=== PATIENT | male | born 1970 | race Caucasian/White ===

== ENCOUNTER 2017-11-03 22:05 | Emergency (ER) | payer MEDICAID ==
[2017-11-03] MEDS: Sodium Chloride 0.9% 10 ML Syringe FLUSH PRN ×2 (22:05→22:37)
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
[2017-11-03] MEDS ORDERED: HYDROmorphone 2 MG/ML SDV IVPUSH ONE (22:24)
[2017-11-03] MEDS ORDERED: HYDROmorphone 2 MG/ML SDV ONE (22:26)
[2017-11-03] MEDS ORDERED: Iopamidol 755 MG/ML 150 ML Bottle IV ONE (22:45)
[2017-11-03] MEDS ORDERED: Insulin Regular, Human 100 Units/ML 3 ML Vial IV ONE (22:58)
[2017-11-03] MEDS ORDERED: Sodium Chloride 0.9% 1,000 ML IV SCH (23:00)
[2017-11-03] MEDS ORDERED: Diphtheria,Pertussis(Acell),Tetanus Vaccine 0.5 ML SDV IM ONE (23:08)
[2017-11-04] MEDS ORDERED: Sodium Chloride 0.9% 1,000 ML IV SCH (00:45)
[2017-11-04] MEDS ORDERED: Insulin Regular, Human 100 Units/ML 3 ML Vial SUBCUT ONE (22:59)
== END 2017-11-04 00:50 ==
LOC: FB.ED 22:05
DX: S52.002A Unspecified fracture of upper end of left ulna, initial encounter for closed fracture (principal); S82.301A Unspecified fracture of lower end of right tibia, initial encounter for closed fracture; S82.831A Other fracture of upper and lower end of right fibula, initial encounter for closed fracture; E11.65 Type 2 diabetes mellitus with hyperglycemia; Z23 Encounter for immunization; V23.4XXA Motorcycle driver injured in collision with car, pick-up truck or van in traffic accident, initial encounter
CPT/HCPCS: 29105; 29505; 29515; 36415; 51702; 70450; 71260; 72125; 73080-LT; 73610-RT; 74177; 80053; 80305-QW; 81001; 82947; 82962; 83036; 85025; 85610; 90471; 90715; 93005; 96361; 96374; 99285; G0480; J1170; J1815-GY; J7030; J7050; Q9967

== ENCOUNTER 2019-10-28 21:10 | Emergency (ER) | payer MEDICAID, OTHER ==
--- NOTE | 2019-10-28 22:22 | EDM.PDOC ---
ED HPI GENERAL MEDICAL PROBLEM - General Chief Complaint: General Stated Complaint: DIZZINESS Time Seen by Provider: 10/28/19 21:30 Source of Information: Reports: Patient History Limitations: Reports: No Limitations - History of Present Illness INITIAL COMMENTS - FREE TEXT/NARRATIVE: c/o dizzy pt last saw PCP Dr Luna 2y ago, last saw Dr Leo at [facility] 6m ago pt with h/o schizophrenia, lives alone, no children, no pets states his sister and mother have checked his BS the last few days and "it has been high", BS was 244 tonight after supper which got him worried, however his BS was over 300 with A1C of 7.8 from 2y ago when labs last checked in [facility] pt has never been on DM meds, states his diabetes is "diet controlled" unfortunately, he had a GFR of 46 from 2y ago pt agreed to recheck labs today EKG tonight with SR 85, borderline LAD -20, no Q waves, no hypertrophy - Related Data Allergies Allergy/AdvReac Type Severity Reaction Status Date / Time divalproex sodium Allergy Nausea and Verified 11/03/17 22:20 [From Depakote] Vomiting Home Meds: Home Meds Benztropine [Cogentin] 2 mg PO BEDTIME 11/03/17 [History] risperiDONE [Risperdal] 2 mg PO BID 11/03/17 [History] risperiDONE [Risperdal] 3 mg PO BID 11/03/17 [History] Meclizine HCl 25 mg PO TID PRN #21 tablet 10/28/19 [Rx] metFORMIN HCl [Glucophage] 500 mg PO QAM #30 tablet 10/28/19 [Rx] Past Medical History - Past Health History Medical/Surgical History: Denies Medical/Surgical History Psychiatric History: Reports: Depression, Schizophrenia, Other (See Below) Other Psychiatric History: memory problem Endocrine/Metabolic History: Reports: Diabetes, Type II Social & Family History - Tobacco Use Smoking Status *Q: Never Smoker - Recreational Drug Use Recreational Drug Use: No ED ROS GENERAL - Review of Systems Review Of Systems: See Below Constitutional: Reports: No Symptoms, Other (no pain) HEENT: Reports: No Symptoms Respiratory: Reports: No Symptoms Cardiovascular: Reports: No Symptoms Endocrine: Reports: No Symptoms GI/Abdominal: Reports: No Symptoms : Reports: No Symptoms Musculoskeletal: Reports: No Symptoms Skin: Reports: No Symptoms Neurological: Reports: Dizziness, Other (blurred vision in right eye for several days) Psychiatric: Reports: No Symptoms Hematologic/Lymphatic: Reports: No Symptoms Immunologic: Reports: No Symptoms ED EXAM, GENERAL - Physical Exam Exam: See Below General Appearance: Alert, WD/WN, No Apparent Distress Eye Exam: Bilateral Eye: EOMI, PERRL, Other (4/4 mm) Ears: Other (some hearing loss) Nose: Normal Inspection, Normal Mucosa, No Blood Throat/Mouth: Normal Inspection, Normal Lips, Normal Teeth, Normal Gums, Normal Oropharynx, Normal Voice, No Airway Compromise Head: Atraumatic, Normocephalic Neck: Normal Inspection, Supple, Non-Tender, Full Range of Motion. No: Lympha denopathy (R), Lymphadenopathy (L) Respiratory/Chest: No Respiratory Distress, Lungs Clear, Normal Breath Sounds, No Accessory Muscle Use Cardiovascular: Regular Rate, Rhythm, No Edema, No JVD, No Murmur GI/Abdominal: Soft, Non-Tender, No Distention Back Exam: Normal Inspection, Full Range of Motion. No: CVA Tenderness (R), CVA Tenderness (L) Extremities: Normal Inspection, Normal Range of Motion, Non-Tender, No Pedal Edema Neurological: Alert, Oriented, CN II-XII Intact, Normal Cognition, Normal Gait, No Motor/Sensory Deficits Skin Exam: Warm, Dry, Intact, Normal Color, No Rash Lymphatic: No Adenopathy Course - Vital Signs Last Recorded V/S: Last Vital Signs Temp 36.6 C 10/28/19 21:10 Pulse 87 10/28/19 21:10 Resp 23 H 10/28/19 21:10 BP 124/99 H 10/28/19 21:10 Pulse Ox 98 10/28/19 21:10 - Orders/Labs/Meds Orders: Active Orders 24 hr Category Date Time Status GLYCOSYLATED HEMOGLOBIN,HGBA1C [CHEM] Stat Lab 10/28/19 22:40 Ordered Meclizine [Antivert] Med 10/28/19 23:00 Once 25 mg PO ONETIME ONE Labs: Laboratory Tests 10/28/19 10/28/19 10/28/19 Range/Units 22:05 22:10 22:10 WBC 12.0 (4.5-12.0) X10-3/uL RBC 5.49 (4.30-5.75) x10(6)uL Hgb 16.1 (13.5-17.8) g/dL Hct 48.4 (30.0-51.3) % MCV 88.2 (80-96) fL MCH 29.2 (27.7-33.6) pg MCHC 33.2 (32.2-35.4) g/dL RDW 12.2 (11.5-15.5) % Plt Count 204 (125-369) X10(3)uL MPV 7.8 (7.4-10.4) fL Neut % (Auto) 67.7 (46-82) % Lymph % (Auto) 22.1 (13-37) % [place] % (Auto) 8.7 (4-12) % Eos % (Auto) 1 (1.0-5.0) % Baso % (Auto) 1 (0-2) % Neut # (Auto) 8.1 (1.6-8.3) # Lymph # (Auto) 2.7 (0.6-5.0) # [place] # (Auto) 1.0 (0.0-1.3) # Eos # (Auto) 0.1 (0.0-0.8) # Baso # (Auto) 0.1 (0.0-0.2) # Sodium 134 L (135-145) mmol/L Potassium 3.6 (3.5-5.3) mmol/L Chloride 97 L (100-110) mmol/L Carbon Dioxide 23 (21-32) mmol/L BUN 33 H D (7-18) mg/dL Creatinine 1.6 H (0.70-1.30) mg/dL Est Cr Clr Drug Dosing 57.82 mL/min Estimated GFR (MDRD) 46 L (>60) BUN/Creatinine Ratio 20.6 H (9-20) Glucose 219 H D (80-116) mg/dL Calcium 9.6 (8.6-10.2) mg/dL Total Bilirubin 0.6 (0.1-1.3) mg/dL AST 39 H D (5-25) IU/L ALT 56 H D (12-36) U/L Alkaline Phosphatase 89 (56-112) IU/L Troponin I (4.0-60.3) pg/mL Total Protein 8.4 H (6.0-8.0) g/dL Albumin 4.5 (3.5-5.2) g/dL Globulin 3.9 g/dL Albumin/Globulin Ratio 1.2 TSH, Ultra Sensitive (0.36-3.74) IU/mL Urine Color Yellow (YELLOW) Urine Appearance Slightly cloudy (CLEAR) Urine pH 5.0 (5.0-6.5) Ur Specific [place] 1.025 (1.010-1.025) Urine Protein Negative (NEGATIVE) mg/dL Urine Glucose (UA) >1000 H (NORMAL) mg/dL Urine Ketones 50 H (NEGATIVE) mg/dL Urine Occult Blood Moderate H (NEGATIVE) Urine Nitrite Negative (NEGATIVE) Urine Bilirubin Negative (NEGATIVE) Urine Urobilinogen Normal (NEGATIVE) mg/dL Ur Leukocyte Esterase Negative (NEGATIVE) Urine RBC 0-5 (0-5) Urine WBC 0-5 (0-5) Ur Squamous Epith Cells Occasional (NS,R,O) Uric Acid Crystals Moderate H (NS) Urine Bacteria Few H (NS) Urine Mucus Moderate H (NS) //20 Range/Units 22:10 WBC (4.5-12.0) X10-3/uL RBC (4.30-5.75) x10(6)uL Hgb (13.5-17.8) g/dL Hct (30.0-51.3) % MCV (80-96) fL MCH (27.7-33.6) pg MCHC (32.2-35.4) g/dL RDW (11.5-15.5) % Plt Count (125-369) X10(3)uL MPV (7.4-10.4) fL Neut % (Auto) (46-82) % Lymph % (Auto) (13-37) % [place] % (Auto) (4-12) % Eos % (Auto) (1.0-5.0) % Baso % (Auto) (0-2) % Neut # (Auto) (1.6-8.3) # Lymph # (Auto) (0.6-5.0) # [place] # (Auto) (0.0-1.3) # Eos # (Auto) (0.0-0.8) # Baso # (Auto) (0.0-0.2) # Sodium (135-145) mmol/L Potassium (3.5-5.3) mmol/L Chloride (100-110) mmol/L Carbon Dioxide (21-32) mmol/L BUN (7-18) mg/dL Creatinine (0.70-1.30) mg/dL Est Cr Clr Drug Dosing mL/min Estimated GFR (MDRD) (>60) BUN/Creatinine Ratio (9-20) Glucose (80-116) mg/dL Calcium (8.6-10.2) mg/dL Total Bilirubin (0.1-1.3) mg/dL AST (5-25) IU/L ALT (12-36) U/L Alkaline Phosphatase (56-112) IU/L Troponin I 4.8 (4.0-60.3) pg/mL Total Protein (6.0-8.0) g/dL Albumin (3.5-5.2) g/dL Globulin g/dL Albumin/Globulin Ratio TSH, Ultra Sensitive 0.75 (0.36-3.74) IU/mL Urine Color (YELLOW) Urine Appearance (CLEAR) Urine pH (5.0-6.5) Ur Specific [place] (1.010-1.025) Urine Protein (NEGATIVE) mg/dL Urine Glucose (UA) (NORMAL) mg/dL Urine Ketones (NEGATIVE) mg/dL Urine Occult Blood (NEGATIVE) Urine Nitrite (NEGATIVE) Urine Bilirubin (NEGATIVE) Urine Urobilinogen (NEGATIVE) mg/dL Ur Leukocyte Esterase (NEGATIVE) Urine RBC (0-5) Urine WBC (0-5) Ur Squamous Epith Cells (NS,R,O) Uric Acid Crystals (NS) Urine Bacteria (NS) Urine Mucus (NS) - Re-Assessments/Exams Free Text/Narrative Re-Assessment/Exam: 10/28/19 23:08 labs reviewed with pt, fortunately GFR still 46 altho pt cautioned re possible need for dialysis in future he was agreeable to starting meds for the first time for his DM, will start at just 500 mg qAM and then have PCP increase, A1C pending pt has uric acid crystals in urine, denies the gout however pt has ketones in urine, unclear if he has mild DKA (no n/v) vs dehydration (more likely) mild inc'd TP of uncertain clinical sig, no clinical signs/sxs of infection pt stated he had trouble making appointment with Dr Bowman to refill his psych meds, was given a folder on the [facility] with Dr Bowman's business card pt states he takes risperidone 3 mg at noon and 2 mg in evening and tolerates this very well, that he had been on a higher dose in the past, also takes cyclobenzaprine and duloxetine. Had been on Geodon in the past Departure - Departure Time of Disposition: 23:01 Disposition: Home, Self-Care 01 Condition: Good Clinical Impression: Dizzy, Blurred vision, Cataracts, bilateral, Diabetes mellitus with hyperglycemia, Renal insufficiency - Discharge Information *PRESCRIPTION DRUG MONITORING PROGRAM REVIEWED*: Not Applicable *COPY OF PRESCRIPTION DRUG MONITORING REPORT IN PATIENT JUDIE: Not Applicable Prescriptions: metFORMIN HCl [Glucophage] 500 mg PO QAM #30 tablet Meclizine HCl 25 mg PO TID PRN #21 tablet PRN Reason: Dizziness Instructions: Dizziness, Hyperglycemia Forms: ED Department Discharge Additional Instructions: For the elevated blood sugar and to protect the kidneys (so that you do not get kidney failure and have to go on dialysis), take metformin 500 mg 1 tab in the morning. For dizziness, take meclizine 25 mg 1 tab 3 times a day as needed. Increase fluids without caffeine as you are behind on fluids. See Dr Leo in the next 1-2 weeks to refill your regular medications. See Dr Luna in the next 1-2 weeks for further recommendations regarding your elevated blood sugar. Return to ED if you are feeling worse. Sepsis Event Note (ED) - Evaluation Sepsis Screening Result: No Definite Risk - Focused Exam Vital Signs: Vital Signs Temp Pulse Resp BP Pulse Ox 10/28/19 21:10 36.6 C 87 23 H 124/99 H 98 - My Orders Last 24 Hours: My Active Orders 10/28/19 22:40 GLYCOSYLATED HEMOGLOBIN,HGBA1C [CHEM] Stat 10/28/19 23:00 Meclizine [Antivert] 25 mg PO ONETIME ONE - Assessment/Plan Last 24 Hours: My Active Orders 10/28/19 22:40 GLYCOSYLATED HEMOGLOBIN,HGBA1C [CHEM] Stat 10/28/19 23:00 Meclizine [Antivert] 25 mg PO ONETIME ONE
[2019-10-28 22:56] LABS: HEMOGLOBIN A1C 8.2 % (<5.7)
[2019-10-28] MEDS: Meclizine 25 MG Tab PO ONE (23:05)
== END 2019-10-28 23:23 | disposition home or self-care (01) ==
LOC: FB.ED 21:10
DX: E11.65 Type 2 diabetes mellitus with hyperglycemia (principal); H26.9 Unspecified cataract; N28.9 Disorder of kidney and ureter, unspecified; F20.9 Schizophrenia, unspecified; Z79.84 Long term (current) use of oral hypoglycemic drugs; Z79.899 Other long term (current) drug therapy; Z88.8 Allergy status to other drugs, medicaments and biological substances
CPT/HCPCS: 36415; 80053; 81001; 83036; 84443; 84484; 85025; 93005; 99285-25; A9270-GY

== ENCOUNTER 2021-01-01 09:55 | Emergency (ER) | payer MEDICAID, OTHER ==
--- NOTE | 2021-01-01 10:40 | EDM.PDOC ---
ED HPI GENERAL MEDICAL PROBLEM - General Stated Complaint: STROKE SYMPTOMS Time Seen by Provider: 01/01/21 10:35 Source of Information: Reports: Patient History Limitations: Reports: No Limitations - History of Present Illness INITIAL COMMENTS - FREE TEXT/NARRATIVE: Patient presented to the ED because of rt facial droop and Ptosis of the right eye which started 3 days ago. there is no other Neuro s/s. - Related Data Allergies Allergy/AdvReac Type Severity Reaction Status Date / Time divalproex sodium Allergy Nausea and Verified 11/03/17 22:20 [From Depakote] Vomiting Home Meds: Home Meds Benztropine [Cogentin] 2 mg PO BEDTIME 11/03/17 [History] risperiDONE [Risperdal] 2 mg PO BID 11/03/17 [History] risperiDONE [Risperdal] 3 mg PO BID 11/03/17 [History] Meclizine HCl 25 mg PO TID PRN #21 tablet 10/28/19 [Rx] metFORMIN HCl [Glucophage] 500 mg PO QAM #30 tablet 10/28/19 [Rx] Acyclovir 800 mg PO BID #10 tablet 01/01/21 [Rx] predniSONE [Prednisone] 20 mg PO DAILY #10 tablet 01/01/21 [Rx] Past Medical History - Past Health History Medical/Surgical History: Denies Medical/Surgical History Psychiatric History: Reports: Depression, Schizophrenia, Other (See Below) Other Psychiatric History: memory problem Endocrine/Metabolic History: Reports: Diabetes, Type II ED ROS GENERAL - Review of Systems Review Of Systems: See Below Constitutional: Reports: No Symptoms HEENT: Reports: No Symptoms Respiratory: Reports: No Symptoms Cardiovascular: Reports: No Symptoms Endocrine: Reports: No Symptoms GI/Abdominal: Reports: No Symptoms : Reports: No Symptoms Musculoskeletal: Reports: No Symptoms Skin: Reports: No Symptoms Neurological: Reports: No Symptoms Psychiatric: Reports: No Symptoms Hematologic/Lymphatic: Reports: No Symptoms ED EXAM, GENERAL - Physical Exam Exam: See Below Exam Limited By: No Limitations General Appearance: Alert, No Apparent Distress Eye Exam: Bilateral Eye: PERRL Ears: Normal External Exam, Normal Canal Nose: Normal Inspection, Normal Mucosa, No Blood Throat/Mouth: Normal Inspection, Normal Lips, Normal Teeth, Other (Rt facial droop) Head: Atraumatic, Normocephalic Neck: Normal Inspection, Supple, Non-Tender, Full Range of Motion Respiratory/Chest: No Respiratory Distress, Lungs Clear, Normal Breath Sounds, No Accessory Muscle Use, Chest Non-Tender Cardiovascular: Normal Peripheral Pulses, Regular Rate, Rhythm, No Edema, No Gallop, No JVD, No Murmur, No Rub GI/Abdominal: Normal Bowel Sounds, Soft, Non-Tender, No Organomegaly, No Distention, No Abnormal Bruit Back Exam: Normal Inspection, Full Range of Motion Extremities: Normal Inspection, Normal Range of Motion, Non-Tender, No Pedal Edema, Normal Capillary Refill Neurological: Alert, Oriented, CN II-XII Intact, Normal Cognition, Normal Reflexes, No Motor/Sensory Deficits Psychiatric: Normal Affect, Normal Mood, Anxious Skin Exam: Warm Course - Vital Signs Text/Narrative:: Reassurance Last Recorded V/S: Last Vital Signs Temp 36.7 C 01/01/21 10:29 Pulse 76 01/01/21 10:29 Resp 18 01/01/21 10:29 BP 139/89 01/01/21 10:29 Pulse Ox 96 01/01/21 10:29 Departure - Departure Time of Disposition: 10:35 Disposition: Home, Self-Care 01 Condition: Good Clinical Impression: Epperson's palsy - Discharge Information Prescriptions: Acyclovir 800 mg PO BID #10 tablet predniSONE [Prednisone] 20 mg PO DAILY #10 tablet Instructions: Epperson Palsy, Adult Referrals: Paul Luna MD [Primary Care Provider] - Forms: ED Department Discharge Additional Instructions: Please read discharge instructions on Epperson's palsy Take Acyclovir *)) mg Twice daily for 5 days Prednisone 20 mg daily for 10 days Follow up as needed Sepsis Event Note (ED) - Evaluation Sepsis Screening Result: No Definite Risk - Focused Exam Vital Signs: Vital Signs Temp Pulse Resp BP Pulse Ox 01/01/21 10:29 36.7 C 76 18 139/89 96
== END 2021-01-01 11:28 | disposition home or self-care (01) ==
LOC: FB.ED 09:55
DX: G51.0 Bell's palsy (principal); E11.9 Type 2 diabetes mellitus without complications; Z88.8 Allergy status to other drugs, medicaments and biological substances; Z79.84 Long term (current) use of oral hypoglycemic drugs; Z79.899 Other long term (current) drug therapy
CPT/HCPCS: 99284